=== PATIENT | female | born 1985 | race Caucasian/White ===

== ENCOUNTER → 2022-12-21 13:14 | Outpatient (BNVA) | payer MEDICARE, MEDICAID, SELFPAY | PROVIDERS: PCP Internal Medicine; Visit Provider Physician Assistant ==

== ENCOUNTER → 2022-12-25 14:57 | Outpatient (BNVA) | payer MEDICARE, MEDICAID, SELFPAY | PROVIDERS: PCP Internal Medicine; Visit Provider Physician Assistant Surgical | DX: E66.9 Obesity, unspecified (principal); E28.2 Polycystic ovarian syndrome; G71.039 Limb girdle muscular dystrophy, unspecified; Z68.33 Body mass index [BMI] 33.0-33.9, adult; Z90.49 Acquired absence of other specified parts of digestive tract; Z90.3 Acquired absence of stomach [part of]; Z99.3 Dependence on wheelchair; Z71.3 Dietary counseling and surveillance | CPT/HCPCS: 99202 ==